=== PATIENT | female | born 1975 | race Two or more races ===

== ENCOUNTER 2024-12-21 10:35 | Day surgery (SDC) | payer MEDICAID, SELFPAY ==
--- NOTE | 2024-12-19 06:55 | EKG_ITS ---
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
[2024-12-19 10:30] VITALS: BMI 28.0
[2024-12-19 11:51] LABS: Collection Type, Urine Clean Catch
[2024-12-19 12:06] LABS: Basophils % (Auto) 0 % (0-2.5); Eosinophils # (Auto) 0.2 Thou/mm3 (0.0-0.5); Eosinophils % (Auto) 2 % (0-10); Hemoglobin 12.1 g/dL (12.0-16.0); Immature Granulocytes % (Auto) 0 % (0-0); Immature Granulocytes Auto 0.04 Thou/mm3 (0.00-0.00); Lymphocytes # (Auto) 1.9 Thou/mm3 (1.0-4.8); Lymphocytes % (Auto) 21 % (10-50); Mean Corpuscular HGB Conc 31.8 g/dl (31.0-37.0); Mean Corpuscular Hemoglobin 27.1 pg (25.0-35.0); Mean Corpuscular Volume 85 fL (80-100); Monocytes # (Auto) 0.6 Thou/mm3 (0.0-0.8); Monocytes % (Auto) 7 % (0-12); Neutrophils # (Auto) 6.4 Thou/mm3 (1.8-7.7); Neutrophils % (Auto) 70 % (37-80); Nucleated Red Blood Cell % 0 /100 WBC (0); Platelet Count 316 Thou/mm3 (140-440); RDW Standard Deviation 44.2 fL (36.4-46.3); Red Blood Count 4.47 Miln/mm3 (4.00-5.20); White Blood Count 9.2 Thou/mm3 (3.6-11.0)
[2024-12-19 12:07] LABS: HCG Qualitative,Urine Negative
[2024-12-19 12:08] LABS: Bilirubin,Urine Negative (Negative); Blood,Urine Negative (Negative); Clarity,Urine Clear (Clear/Hazy); Color,Urine Colorless (Lt Yel-Yel); Glucose, Urine Negative (Negative); Ketones,Urine Negative (Negative); Leukocyte Esterase,Urine Negative (Negative); Nitrite,Urine Negative (Negative); PH,Urine 6.5 (5.0-7.0); Protein,Urine Negative (Neg - Trace); RBC,Urine 1 /hpf (0-3); Specific Gravity,Urine 1.005 (1.001-1.035); Squamous Epithelial Cell,Urine 9 /hpf (0-5); Urobilinogen,Urine Negative mg/dL (0.0-1.0); WBC,Urine 1 /hpf (0-5)
[2024-12-19 12:18] LABS: Alanine Aminotransferase 24 U/L (10-49); Albumin, Serum 4.4 gm/dL (3.5-5.0); Albumin/Globulin Ratio 1.6 (1.2-2.2); Alkaline Phosphatase 88 U/L (46-116); Anion Gap 10 (7-16); Aspartate Amino Transferase 24 U/L (0-34); BUN/Creatinine Ratio 8 Ratio (12-20); Bilirubin,Total 0.4 mg/dL (0.3-1.2); Blood Urea Nitrogen 6 mg/dL (9-23); Carbon Dioxide 24.3 mMol/L (20.0-31.0); Chloride 103 mMol/L (98-107); Creatinine (Component) 0.8 mg/dL (0.6-1.3); Estimated Creatinine Clearance 94.3 mL/min (>60); Globulin 2.7 gm/dL (2.3-3.5); Glucose 151 mg/dL (74-106); Osmolality,Calculated 274 (275-295); Potassium 4.5 mMol/L (3.4-5.1); Sodium 137 mMol/L (136-145); Total Protein 7.1 gm/dL (5.7-8.2); eGFR > 60 See Note
[2024-12-21] VITALS (7 sets, daily range): BP systolic 125–144; BP diastolic 73–88; PULSE 73–89; RESP 14–19; TEMP 36.2–36.6; O2SAT 98–100; BMI 27.9
--- NOTE | 2024-12-21 10:52 | SUR.PREOP ---
Patient expressed gratitude for prayer before their procedure.
--- NOTE | 2024-12-21 13:34 | ESOP_ITS ---
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 Bladder was straight catheterized and drained. Timeout was done. Patient received surgical infection site prophylaxis.. Pelvic exam revealed normal-appearing cervix anteverted uterus no adnexal masses normal vagina. By valved speculum was placed vaginally anterior lip of cervix held with single- tooth tenaculum, endocervical length was 4 cm ,uterocervical length by the u terine sound was 9 cm ,giving a uterine cavity length of 5 cm. Cervical os was dilated to 8 mm by by graduated uterine dilators ,Rohan. Then a 30 degree hysteroscope primed with normal saline was introduced through the external cervical os, uterine cavity visualized both ostia seen, no submucosal fibroids or endometrial polyps seen. Hysteroscope was withdrawn endometrial curettings obtained and sent for histopathology. Then the NovaSure device was introduced into the cervical os with a lock at 5 cm and then the NovaSure device is locked in place. With assessment is done. And is at 2.5 cm. Cavity assessment is passed, the radiofrequency device deployed, for full 2 minutes, procedure then completed, NovaSure unlocked and with the radiofrequency array, and the sheath it is withdrawn. Check hysteroscopy reveals well ablated uterine endometrium and the uterine cavity is intact. Procedure then completed and instruments removed. Instrument and sponge count is correct. Patient sent to recovery in stable condition. Specimen: other (endometrial curettings) Estimated blood loss (ml): 10 Findings: normal uterine cavity with both ostia seen Complications: none Narrative: see procedure/ deficit is 10 cc N saline Surgical staff Operation Date: 12/21/24 12:45 <No data on this case meets the specified criteria> Diagnosis Problem List Completed Was Problem List Reviewed/Reconciled?: Yes
--- NOTE | 2024-12-21 13:39 | SUR.PHASEI ---
pt received from OR in recovery bay 5. pt obtunded, breathing unlabored on oxymask 8l, oral airway in place. v/s stable. pt dressing peripad cdi. report received from Erum REAVES and Gloria ALEXANDER.
--- NOTE | 2024-12-21 13:50 | SUR.OPER ---
Endometrial ablation Uterine sound: 9cm Cervical length: 4cm Cavity length: 5cm Cavity width: 2.5cm Power settinW Duration of ablation: 2 minutes 0 seconds
--- NOTE | 2024-12-21 14:45 | SUR.PHASEII ---
pt awake and alert, breathing unlabored on room air. v/s stable. pt dressing peripad cdi. pt able to ambulate to wheelchair with steady gait. d/c instructions given with [employer] in room, all questions answered. pt d/c via wheelchair with all belongings.
== END 2024-12-21 14:45 | disposition home or self-care (01) ==
PROVIDERS: Anesthesiology; PCP Physician Assistant; Referring Provider Obstetrics & Gynecology; Visit Provider Obstetrics & Gynecology
PROC: 0U5B8ZZ Destruction of Endometrium, Via Natural or Artificial Opening Endoscopic (ICD-10-PCS; CPT 58563; principal; 2024-12-21 12:30)
PROC: (CPT 58120; 2024-12-21 12:30)
DX: D25.9 Leiomyoma of uterus, unspecified (principal); Z01.810 Encounter for preprocedural cardiovascular examination
CPT/HCPCS: 58563; 36415; 80053; 81001; 81025; 85025; 93005; A4217; A4649; J0131; J0690; J1100; J2250; J2405; J2704; J3010; J3490